=== PATIENT | male | born 1985 | race African-American/Black ===

== ENCOUNTER 2016-09-29 18:17 | Emergency (ER) | payer OTHER ==
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
[2016-09-29] MEDS ORDERED: IBUPROFEN 600 MG TAB PO ONE ×2 (18:57→19:03)
[2016-09-29 19:04] VITALS: BP 122/74; PULSE 81; RESP 16; TEMP 97.9; O2SAT 96
== END 2016-09-29 19:04 | disposition home or self-care (01) ==
DX: S16.1XXA Strain of muscle, fascia and tendon at neck level, initial encounter (principal); V43.52XA Car driver injured in collision with other type car in traffic accident, initial encounter; Y92.410 Unspecified street and highway as the place of occurrence of the external cause; Y99.8 Other external cause status; Y93.89 Activity, other specified

== ENCOUNTER 2018-05-22 11:15 | Emergency (ER) | payer OTHER ==
[2018-05-22 11:19] VITALS: BP 115/75
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
== END 2018-05-22 12:20 | disposition home or self-care (01) ==
DX: S22.32XA Fracture of one rib, left side, initial encounter for closed fracture (principal); W50.0XXA Accidental hit or strike by another person, initial encounter; Y92.322 Soccer field as the place of occurrence of the external cause; Y93.66 Activity, soccer